=== PATIENT | male | born 1960 | race Caucasian/White ===

== ENCOUNTER 2018-07-15 17:49 | Inpatient (IN) | payer MEDICARE, OTHER ==
[~2018-07-15] VITALS: Ht 172.7 cm; Wt 65.3 kg
[2018-07-15 10:30] VITALS: BP 122/73
[2018-07-15] MEDS ORDERED: ATEN25TA PO (18:02)
[2018-07-15] MEDS ORDERED: PERCT10 PO (18:02)
[2018-07-15] MEDS ORDERED: HYDR25TA PO (18:02)
[2018-07-15] MEDS ORDERED: LEVE500T53 PO (18:02)
[2018-07-15] MEDS ORDERED: ASPI81 PO (18:02)
[2018-07-15 19:49] LABS: BASOPHILS % (AUTO) 1.6 % (0.0-2.0); EOSINOPHILS % (AUTO) 3.8 % (1.0-6.0); HEMATOCRIT 42.5 % (41-53); HEMOGLOBIN 14.5 g/dL (13.5-17.5); LYMPHOCYTES # (AUTO) 1.4 K/uL (1.0-4.8); LYMPHOCYTES % (AUTO) 22.9 % (22.0-44.0); MEAN CORPUSCULAR HEMOGLOBIN 33.7 pg (26.0-34.0); MEAN CORPUSCULAR HGB CONC 34.1 G/dL (31.0-37.0); MEAN CORPUSCULAR VOLUME 99 fL (80-100); MONOCYTES # (AUTO) 0.7 K/uL (0.1-1.0); MONOCYTES % (AUTO) 11.6 % (2.0-9.0); NEUTROPHILS # (AUTO) 3.6 K/uL (1.8-7.7); NEUTROPHILS % (AUTO) 60.1 % (40.0-70.0); PLATELET COUNT (AUTO) 190 K/uL (150-450); RED BLOOD CELL COUNT(AUTO) 4.31 MIL/uL (4.50-5.90); RED CELL DISTRIBUTION WIDTH 12.9 % (11.5-14.5)
[2018-07-15] MEDS ORDERED: 0.9% SODIUM CHLORIDE 10 ML SYRINGE IVP PRN (20:00)
[2018-07-15] MEDS ORDERED: ACETAMINOPHEN 325 MG TABLET PO PRN (20:00)
[2018-07-15] MEDS ORDERED: ONDANSETRON HCL 4 MG/2 ML VIAL IVP PRN (20:00)
[2018-07-15 20:18] LABS: ANION GAP 10 mmol/L (8-16); CALCIUM, TOTAL 9.6 mg/dL (8.8-10.5); CARBON DIOXIDE 28 mmol/L (22-29); CHLORIDE 97 mmol/L (98-107); CREATININE 1.17 mg/dL (0.60-1.30); GLOMERULAR FILTR. RATE CALC > 60 mL/min (>60); GLUCOSE,RANDOM 94 mg/dL (70-110); SODIUM SERUM 135 mmol/L (136-145); UREA NITROGEN, BLOOD 23 mg/dL (7-18)
[2018-07-15 20:25] LABS: ALANINE AMINOTRANSFERASE 118 U/L (12-78); ALBUMIN 4.1 g/dL (3.4-5.0); ALKALINE PHOSPHATASE 72 U/L (46-116); ASPARTATE AMINOTRANSFERASE 88 U/L (15-37); BILIRUBIN,TOTAL 0.4 mg/dL (0.1-1.0); TOTAL PROTEIN, SERUM 8.4 g/dL (6.4-8.2)
[2018-07-15] MEDS ORDERED: OxyCODONE HCL/ACETAMINOPHEN 10-325 MG TABLET PO PRN (21:45)
[2018-07-15 22:30] VITALS: BP 122/73
[2018-07-16 05:47] VITALS: BP 116/65
[2018-07-16 08:30] VITALS: BP 119/77
[2018-07-16] MEDS: ASPIRIN 81 MG CHEWABLE TABLET PO SCH (08:49)
[2018-07-16] MEDS: ATENOLOL 25 MG TABLET PO SCH (10:01)
[2018-07-16 11:25] VITALS: BP 111/77
[2018-07-16] MEDS: ENOXAPARIN SODIUM 30 MG/0.3 ML PF SYRINGE SQ SCH (14:01)
[2018-07-16 15:40] VITALS: BP 143/82
[2018-07-16] MEDS: OxyCODONE HCL/ACETAMINOPHEN 10-325 MG TABLET PO PRN ×2 (15:52→23:58)
[2018-07-16 19:50] VITALS: BP 133/75
[2018-07-16] MEDS ORDERED: GuaiFENesin [SUGAR-FREE] 200 MG/10 ML SOLUTION UDCUP PO PRN (20:30)
[2018-07-16 23:22] VITALS: BP 133/85
[2018-07-17 06:01] VITALS: BP 125/77
[2018-07-17 07:32] VITALS: BP 156/82
[2018-07-17] MEDS: ATENOLOL 25 MG TABLET PO SCH (09:01)
[2018-07-17] MEDS: ASPIRIN 81 MG CHEWABLE TABLET PO SCH (09:01)
[2018-07-17] MEDS: ENOXAPARIN SODIUM 30 MG/0.3 ML PF SYRINGE SQ SCH (09:04)
[2018-07-17] MEDS: OxyCODONE HCL/ACETAMINOPHEN 10-325 MG TABLET PO PRN ×2 (09:18→18:03)
[2018-07-17] MEDS ORDERED: SODIUM CHLORIDE 0.9% 100 ML ONE ×2 (11:26→12:35)
[2018-07-17] MEDS ORDERED: IOVERSOL 350 MG/ML 100 ML VIAL ONE ×2 (11:26→12:35)
[2018-07-17 11:50] VITALS: BP 124/80
[2018-07-17 16:35] VITALS: BP 110/72
[2018-07-17 19:31] VITALS: BP 126/64
[2018-07-17 23:18] VITALS: BP 113/67
[2018-07-18 03:43] VITALS: BP 124/92
[2018-07-18 07:59] VITALS: BP 110/75
[2018-07-18] MEDS: ENOXAPARIN SODIUM 30 MG/0.3 ML PF SYRINGE SQ SCH (08:31)
[2018-07-18] MEDS: OxyCODONE HCL/ACETAMINOPHEN 10-325 MG TABLET PO PRN ×2 (08:31→21:08)
[2018-07-18] MEDS: ASPIRIN 81 MG CHEWABLE TABLET PO SCH (08:31)
[2018-07-18] MEDS: ATENOLOL 25 MG TABLET PO SCH (09:00)
[2018-07-18 11:25] VITALS: BP 111/48
[2018-07-18] MEDS ORDERED: IODIXANOL 320 MG/ML 50 ML VIAL ONE (13:30)
[2018-07-18] MEDS ORDERED: IOVERSOL 350 MG/ML 100 ML VIAL ONE (13:31)
[2018-07-18] MEDS ORDERED: IOHEXOL 240 MG/ML 50 ML VIAL ONE (13:32)
[2018-07-18] MEDS ORDERED: LIDOCAINE/PF 1% 5 ML VIAL ONE (13:35)
[2018-07-18 15:10] VITALS: BP 118/81
[2018-07-18 19:57] VITALS: BP 136/87
[2018-07-18 23:41] VITALS: BP 122/66
[2018-07-19 03:54] VITALS: BP 131/87
[2018-07-19] MEDS ORDERED: NITROPRUSSIDE SODIUM 50 MG in DEXTROSE 5%-WATER 248 ML IV PRN (07:30)
[2018-07-19] MEDS ORDERED: PHENYLEPHRINE 200 MG/D5%-WATER 250 ML IV PRN (07:30)
[2018-07-19 08:24] VITALS: BP 137/81
[2018-07-19] MEDS: ASPIRIN 81 MG CHEWABLE TABLET PO SCH (11:02)
[2018-07-19] MEDS: OxyCODONE HCL/ACETAMINOPHEN 10-325 MG TABLET PO PRN (11:04)
[2018-07-19] MEDS: ATENOLOL 25 MG TABLET PO SCH (11:04)
[2018-07-19] MEDS ORDERED: HYDROmorphone 2 MG/ML SYRINGE IVP ONE (12:00)
[2018-07-19] MEDS: ENOXAPARIN SODIUM 30 MG/0.3 ML PF SYRINGE SQ SCH (13:43)
[2018-07-19 15:10] VITALS: BP 97/57
[2018-07-19 20:08] VITALS: BP 101/74
[2018-07-19 23:38] VITALS: BP 138/77
[2018-07-20] MEDS: OxyCODONE HCL/ACETAMINOPHEN 10-325 MG TABLET PO PRN ×2 (02:10→09:25)
[2018-07-20 05:30] VITALS: BP 108/72
[2018-07-20 06:49] LABS: BASOPHILS % (AUTO) 1.1 % (0.0-2.0); EOSINOPHILS % (AUTO) 3.2 % (1.0-6.0); HEMATOCRIT 38.3 % (41-53); HEMOGLOBIN 13.1 g/dL (13.5-17.5); LYMPHOCYTES # (AUTO) 1.1 K/uL (1.0-4.8); LYMPHOCYTES % (AUTO) 26.3 % (22.0-44.0); MEAN CORPUSCULAR HEMOGLOBIN 33.9 pg (26.0-34.0); MEAN CORPUSCULAR HGB CONC 34.1 G/dL (31.0-37.0); MEAN CORPUSCULAR VOLUME 99 fL (80-100); MONOCYTES # (AUTO) 0.7 K/uL (0.1-1.0); MONOCYTES % (AUTO) 17.4 % (2.0-9.0); NEUTROPHILS # (AUTO) 2.2 K/uL (1.8-7.7); PLATELET COUNT (AUTO) 175 K/uL (150-450); RED BLOOD CELL COUNT(AUTO) 3.86 MIL/uL (4.50-5.90); RED CELL DISTRIBUTION WIDTH 12.5 % (11.5-14.5)
[2018-07-20 06:55] LABS: ALANINE AMINOTRANSFERASE 113 U/L (12-78); ALBUMIN 3.7 g/dL (3.4-5.0); ALKALINE PHOSPHATASE 61 U/L (46-116); ANION GAP 10 mmol/L (8-16); ASPARTATE AMINOTRANSFERASE 78 U/L (15-37); BILIRUBIN,TOTAL 0.5 mg/dL (0.1-1.0); CARBON DIOXIDE 26 mmol/L (22-29); CHLORIDE 99 mmol/L (98-107); CREATININE 1.04 mg/dL (0.60-1.30); GLOMERULAR FILTR. RATE CALC > 60 mL/min (>60); GLUCOSE,RANDOM 91 mg/dL (70-110); POTASSIUM 4.5 mmol/L (3.5-5.1); SODIUM SERUM 135 mmol/L (136-145); TOTAL PROTEIN, SERUM 7.6 g/dL (6.4-8.2)
[2018-07-20 07:02] LABS: UREA NITROGEN, BLOOD 35 mg/dL (7-18)
[2018-07-20 08:23] VITALS: BP 140/68
[2018-07-20] MEDS: ASPIRIN 81 MG CHEWABLE TABLET PO SCH (09:24)
[2018-07-20] MEDS: ATENOLOL 25 MG TABLET PO SCH (09:24)
[2018-07-20] MEDS: ENOXAPARIN SODIUM 30 MG/0.3 ML PF SYRINGE SQ SCH (09:24)
[2018-07-20 11:01] VITALS: BP 142/93
[2018-07-20 15:03] VITALS: BP 148/88
== END 2018-07-20 17:40 | disposition home or self-care (01) | DRG 65 ==
LOC: EMS 17:53 → 5N 19:30
PROVIDERS: ADMIT Internal Medicine; ATTEND Internal Medicine
PROC: 009U3ZX Drainage of Spinal Canal, Percutaneous Approach, Diagnostic (ICD-10-PCS; principal; 2018-07-19)
PROC: B01B1ZZ Fluoroscopy of Spinal Cord using Low Osmolar Contrast (ICD-10-PCS; 2018-07-19)
DX: I63.9 Cerebral infarction, unspecified (principal); E44.0 Moderate protein-calorie malnutrition; I69.351 Hemiplegia and hemiparesis following cerebral infarction affecting right dominant side; M48.02 Spinal stenosis, cervical region; G89.29 Other chronic pain; J44.9 Chronic obstructive pulmonary disease, unspecified; E86.0 Dehydration; I10 Essential (primary) hypertension; R62.7 Adult failure to thrive; F17.200 Nicotine dependence, unspecified, uncomplicated; G62.9 Polyneuropathy, unspecified; M79.672 Pain in left foot; R29.2 Abnormal reflex; F12.90 Cannabis use, unspecified, uncomplicated; M21.379 Foot drop, unspecified foot; M54.12 Radiculopathy, cervical region; I65.21 Occlusion and stenosis of right carotid artery; Z68.21 Body mass index [BMI] 21.0-21.9, adult
CPT/HCPCS: 70450; 70498; 70551; 72125; 72126; 72132; 77003; 97116; 97162; 97530; G0378; J1170; J1650; J2001; J2370; J3490; J7050; J7060; Q9966; Q9967

== ENCOUNTER 2018-10-10 13:38 | Emergency (ER) | payer MEDICARE, OTHER ==
[~2018-10-10] VITALS: Ht 170.2 cm; Wt 65.9 kg
[~2018-10-10 13:38] MED LIST: ASPI81 PO; ATEN25TA PO; HYDR25TA PO; LEVE500T53 PO; PERCT10 PO
[2018-10-10] MEDS ORDERED: PERCT10 PO (14:03)
[2018-10-10] MEDS ORDERED: ALBU8HFA IH (14:03)
[2018-10-10 15:00] VITALS: BP 126/86
[2018-10-10 15:18] LABS: BASOPHILS % (AUTO) 0.5 % (0.0-2.0); EOSINOPHILS % (AUTO) 1.6 % (1.0-6.0); HEMATOCRIT 45.6 % (41-53); HEMOGLOBIN 15.2 g/dL (13.5-17.5); LYMPHOCYTES # (AUTO) 0.9 K/uL (1.0-4.8); LYMPHOCYTES % (AUTO) 15.6 % (22.0-44.0); MEAN CORPUSCULAR HEMOGLOBIN 33.6 pg (26.0-34.0); MEAN CORPUSCULAR HGB CONC 33.2 G/dL (31.0-37.0); MEAN CORPUSCULAR VOLUME 101 fL (80-100); MONOCYTES # (AUTO) 0.7 K/uL (0.1-1.0); MONOCYTES % (AUTO) 11.8 % (2.0-9.0); NEUTROPHILS # (AUTO) 4.2 K/uL (1.8-7.7); NEUTROPHILS % (AUTO) 70.5 % (40.0-70.0); PLATELET COUNT (AUTO) 162 K/uL (150-450); RED BLOOD CELL COUNT(AUTO) 4.52 MIL/uL (4.50-5.90); RED CELL DISTRIBUTION WIDTH 12.4 % (11.5-14.5)
[2018-10-10 15:36] LABS: ANION GAP 9 mmol/L (8-16); CALCIUM, TOTAL 9.8 mg/dL (8.8-10.5); CARBON DIOXIDE 28 mmol/L (22-29); CHLORIDE 94 mmol/L (98-107); CREATININE 1.16 mg/dL (0.60-1.30); GLOMERULAR FILTR. RATE CALC > 60 mL/min (>60); GLUCOSE,RANDOM 97 mg/dL (70-110); POTASSIUM 3.5 mmol/L (3.5-5.1); SODIUM SERUM 131 mmol/L (136-145); UREA NITROGEN, BLOOD 20 mg/dL (7-18)
[2018-10-10 15:42] LABS: ALANINE AMINOTRANSFERASE 79 U/L (12-78); ALBUMIN 4.7 g/dL (3.4-5.0); ALKALINE PHOSPHATASE 73 U/L (46-116); ASPARTATE AMINOTRANSFERASE 70 U/L (15-37); BILIRUBIN,TOTAL 0.8 mg/dL (0.1-1.0); TOTAL PROTEIN, SERUM 8.7 g/dL (6.4-8.2)
== END 2018-10-10 15:15 | disposition short-term general hospital (02) ==
LOC: EMS 13:40
DX: S06.9X0A Unspecified intracranial injury without loss of consciousness, initial encounter (principal); I10 Essential (primary) hypertension; J44.9 Chronic obstructive pulmonary disease, unspecified; F17.210 Nicotine dependence, cigarettes, uncomplicated; Z86.73 Personal history of transient ischemic attack (TIA), and cerebral infarction without residual deficits; Z79.899 Other long term (current) drug therapy; Z88.6 Allergy status to analgesic agent; W18.39XA Other fall on same level, initial encounter; Y93.89 Activity, other specified; Y92.89 Other specified places as the place of occurrence of the external cause; Y99.8 Other external cause status
CPT/HCPCS: 70450; 93005